=== PATIENT | male | born 1985 | race Caucasian/White ===

== ENCOUNTER 2016-09-07 02:25 | Inpatient (IN) | payer SELFPAY ==
[~2016-09-07] VITALS: Ht 180.3 cm; Wt 76.5 kg
[2016-09-07] VITALS (22 sets, daily range): BP systolic 91–152; BP diastolic 55–100; PULSE 68–116; RESP 12–23; TEMP 97.2–101; O2SAT 93–100
[2016-09-07] MEDS ORDERED: SODIUM CHLOR 0.9% 1000 ML INJ 1,000 ML IV SCH (02:37)
[2016-09-07] MEDS ORDERED: PROPOFOL 1000 MG/100 ML INJ 100 ML ONE (02:37)
[2016-09-07] MEDS ORDERED: SODIUM CHLOR 0.9% 1000 ML INJ 1,000 ML IV ONE ×2 (02:39→03:09)
[2016-09-07] MEDS ORDERED: SODIUM CHLORIDE 0.9% FLUSH 5 ML FLUSH IVF PRN ×2 (02:45)
[2016-09-07] MEDS ORDERED: NALOXONE HCL 2 MG/2 ML VIAL IV ONE (02:45)
--- NOTE | 2016-09-07 03:01 | RADRPT ---
EXAM DATE/TIME: 09/07/2016 02:48 [facility] COMPARISON: No previous studies available for comparison. INDICATIONS : Post intubation. MEDICAL HISTORY : None. SURGICAL HISTORY : None. ENCOUNTER: Initial ACUITY: 1 day PAIN SCORE: Non-responsive. LOCATION: Bilateral chest FINDINGS: Endotracheal tube is present in satisfactory position. A nasogastric tube is seen in the distal esoph maciej. Approximately 10 cm additional advancement would be optimal. Lungs are symmetrically aerated an d grossly clear. Cardiomediastinal contours are satisfactory. Thoracic skeleton is grossly intact. CONCLUSION: Nasogastric tube is in the distal esophagus. Otherwise satisfactory Phil Pacheco MD on September 07, 2016 at 2:59 Board Certified Radiologist. This report was verified electronically.
[2016-09-07 03:03] LABS: BACTERIA, URINE RARE /hpf; BLOOD, URINE TRACE (NEG); COMMENT (UR) CATH-CULTURE IND; CULTURE IF INDICATED CATH CULTURE IND; GLUCOSE,URINE 300 mg/dL (NEG); HYALINE CAST, URINE 1 /lpf (RARE); KETONE, URINE NEG (NEG); MUCUS URINE FEW /lpf (OCC); NITRITE,URINE NEG (NEG); URINE COLOR YELLOW (YELLW/STRAW)
[2016-09-07 03:04] LABS: AMPHETAMINE, URINE NEG (NEG); BARBITURATES, URINE NEG (NEG); COCAINE, URINE POS (NEG)
[2016-09-07 03:07] LABS: AUTOMATED NEUTROPHIL # 8.4 TH/MM3 (1.8-7.7); BASOPHIL % 0.4 % (0.0-2.0); EOSINOPHIL # 0.2 TH/MM3 (0-0.4); EOSINOPHIL % 1.9 % (0.0-4.0); HEMATOCRIT 41.1 % (39.0-51.0); LYMPH % 15.7 % (9.0-44.0); LYMPHOCYTE # 1.7 TH/MM3 (1.0-4.8); MEAN CELL VOLUME 94.8 FL (80.0-100.0); MEAN CORPUSCULAR HEMOGLOBIN 32.3 PG (27.0-34.0); MEAN CORPUSCULAR HGB CONC 34.1 % (32.0-36.0); MONO % 5.1 % (0.0-8.0); NEUT % 76.9 % (16.0-70.0); PLATELET COUNT 186 TH/MM3 (150-450); RED BLOOD COUNT 4.33 MIL/MM3 (4.50-5.90); RED CELL DISTRIBUTION WIDTH 12.6 % (11.6-17.2); WHITE BLOOD COUNT 10.9 TH/MM3 (4.0-11.0)
[2016-09-07 03:08] LABS: HEMO FLAGS AUTO DIFF
[2016-09-07 03:12] LABS: ALT (GPT) 45 U/L (12-78); ANION GAP 15 MEQ/L (5-15); AST (GOT) 47 U/L (15-37); BICARBONATE 23.5 MEQ/L (21.0-32.0); BLOOD UREA NITROGEN 15 MG/DL (7-18); CHLORIDE 102 MEQ/L (98-107); GLOMERULAR FILTRATION RATE 29 ML/MIN (>89); MAGNESIUM 2.5 MG/DL (1.5-2.5); POTASSIUM 3.8 MEQ/L (3.5-5.1); SODIUM (NA) 140 MEQ/L (136-145)
[2016-09-07 03:13] LABS: ACETAMINOPHEN LESS THAN 2.0 MCG/ML (10.0-30.0); ALKALINE PHOSPHATASE 89 U/L (45-117); BETA-HYDROXYBUTYRATE 0.16 MMOL/L (0.00-0.39); CREATINE KINASE 118 U/L (39-308); TOTAL BILIRUBIN ADULT 0.1 MG/DL (0.2-1.0)
[2016-09-07 03:33] LABS: BANDS 9 % (0-6); EOSINOPHILS 1 % (0-4); METAMYELOCYTES 1 % (0-1); MYELOCYTES 1 % (0-0); NEUTROPHIL # MANUAL DIFF 8.2 TH/MM3 (1.8-7.7); PLATELET ESTIMATE SMEAR NORMAL (NORMAL); PLATELET MORPHOLOGY NORMAL (NORMAL); POLYS (SEG NEUTROPHILS) 64 % (16-70); SCAN/DIFF FINAL DIFF MANUAL; WBC DIFF SAMPLE 100
--- NOTE | 2016-09-07 03:38 | PD ---
HPI Chief Complaint: Altered Mental Status Time Seen by Provider: 02:37 Travel History International Travel<30 days: No Contact w/Intl Traveler<30days: No Traveled to known affect area: No History of Present Illness HPI Patient is approximately 26 years old. EMS reports he was found unresponsive by roommate evidently vomiting in the toilet. Friend was concerned for apnea and started chest compressions without checking the pulse. EMS notes + HR on scene with RR of approximately 4/min. EMS reported HR 110's. 0.5L NS given. 0.8mg Narcan given with no change. BP 130s systolic. O2 sat upon arrival approx 94%. FSG was 390 on scene. EMS attempted intubation in route without success. 2mg Narcan given with no change. Upon arrival to ER pt was intubated shortly thereafter. Pt's friend reports they abuse drugs typically every weekend. Pt obtained a Xanax script a few days prior and reportedly took approx 20 1mg tablets. PFSH Past Medical History Medical History: Unable to Obtain Tetanus Vaccination: Unknown Past Surgical History Surgical History: Unable to Obtain Social History Tobacco Use: No (unknown) Substance Use: No (unknown) Allergies-Medications (Allergen,Severity, Reaction): Coded Allergies: Morphine (Verified Allergy, Unknown, 09/07/16) Reported Meds & Prescriptions Reported Meds & Active Scripts Active Reported Xanax (Alprazolam) 0.5 Mg Tab 0.5 Mg PO Q4H PRN Review of Systems ROS Limitations: Clinical Condition, Intoxication, Intubated Physical Exam Narrative GENERAL: Approximately 26-year-old male well-nourished well-developed SKIN: Warm and dry. HEAD: Atraumatic. Normocephalic. EYES: Pupils equal round and reactive. The gaze is conjugate. ENT: No nasal bleeding or discharge. Mucous membranes pink and moist. Secretions present in the hypopharynx. NECK: Trachea midline. No JVD. CARDIOVASCULAR: Regular rate and rhythm. No murmur appreciated. RESPIRATORY: No accessory muscle use. Clear to auscultation. Breath sounds equal bilaterally. GASTROINTESTINAL: Abdomen soft, non-tender, nondistended. Hepatic and splenic margins not palpable. MUSCULOSKELETAL: No obvious deformities. No clubbing. No cyanosis. No edema. NEUROLOGICAL: GCS is 3 (eyes 1, verbal 1, motor 1). Pupils equal round and reactive. PSYCHIATRIC: Unable to assess. Data Data Last Documented VS Vital Signs Date Time Temp Pulse Resp B/P Pulse Ox O2 Delivery O2 Flow Rate FiO2 09/07/16 03:17 100 12 138/83 99 Ventilator 60 09/07/16 02:52 98.0 Orders Propofol 1000 Mg/100 Ml Inj (Diprivan 10 (09/07/16 02:37) Electrocardiogram (09/07/16 02:37) Complete Blood Count With Diff (09/07/16 02:37) Drug Screen, Random Urine (09/07/16 02:37) Salicylates (Aspirin) (09/07/16 02:37) Urinalysis - C+S If Indicated (09/07/16 02:37) Arterial Blood Gas (Abg) (09/07/16 02:37) Chest, Single Ap (09/07/16 02:37) Ct Brain W/O Iv Contrast(Rout) (09/07/16 02:37) Blood Glucose (09/07/16 02:37) Ecg Monitoring (09/07/16 02:37) Iv Access Insert/Monitor (09/07/16 02:37) Oximetry (09/07/16 02:37) Oxygen Administration (09/07/16 02:37) Urinary Catheter Insert/Apply (09/07/16 02:37) Naloxone Inj (Narcan Inj) (09/07/16 02:45) Sodium Chloride 0.9% Flush (Ns Flush) (09/07/16 02:45) Sodium Chlor 0.9% 1000 Ml Inj (Ns 1000 M (09/07/16 02:37) Magnesium (Mg) (09/07/16 02:39) Beta Hydroxybutyrate (Acetone) (09/07/16 02:39) Lactic Acid (09/07/16 02:39) Blood Glucose (09/07/16 02:39) Blood Glucose (09/07/16 03:39) Blood Glucose (09/07/16 02:39) NPO (09/07/16 02:39) Sodium Chlor 0.9% 1000 Ml Inj (Ns 1000 M (09/07/16 02:39) Sodium Chlor 0.9% 1000 Ml Inj (Ns 1000 M (09/07/16 03:09) Sodium Chloride 0.9% Flush (Ns Flush) (09/07/16 02:45) Lipase (09/07/16 02:39) Tylenol (Acetaminophen) (09/07/16 02:45) Alcohol (Ethanol) (09/07/16 02:45) Creatine Kinase (Cpk) (09/07/16 02:45) Comprehensive Metabolic Panel (09/07/16 02:45) Troponin I (09/07/16 02:45) Urine Culture (09/07/16 02:40) Admit Order (Ed Use Only) (09/07/16 03:35) Labs Laboratory Tests Test 09/07/16 09/07/16 09/07/16 02:40 02:45 03:35 Urine Color YELLOW Urine Turbidity CLEAR Urine pH 6.0 Urine Specific [place] 1.013 Urine Protein 100 mg/dL Urine Glucose (UA) 300 mg/dL Urine Ketones NEG mg/dL Urine Occult Blood TRACE Urine Nitrite NEG Urine Bilirubin NEG Urine Urobilinogen LESS THAN 2.0 MG/DL Urine Leukocyte Esterase NEG Urine RBC 5 /hpf Urine WBC 11 /hpf Urine Bacteria RARE /hpf Urine Hyaline Casts 1 /lpf Urine Mucus FEW /lpf Microscopic Urinalysis Comment CATH-CULTURE IND Urine Opiates Screen NEG Urine Barbiturates Screen NEG Urine Amphetamines Screen NEG Urine Benzodiazepines Screen POS Urine Cocaine Screen POS Urine Cannabinoids Screen NEG White Blood Count 10.9 TH/MM3 Red Blood Count 4.33 MIL/MM3 Hemoglobin 14.0 GM/DL Hematocrit 41.1 % Mean Corpuscular Volume 94.8 FL Mean Corpuscular Hemoglobin 32.3 PG Mean Corpuscular Hemoglobin 34.1 % Concent Red Cell Distribution Width 12.6 % Platelet Count 186 TH/MM3 Mean Platelet Volume 9.2 FL Neutrophils (%) (Auto) 76.9 % Lymphocytes (%) (Auto) 15.7 % Monocytes (%) (Auto) 5.1 % Eosinophils (%) (Auto) 1.9 % Basophils (%) (Auto) 0.4 % Neutrophils # (Auto) 8.4 TH/MM3 Lymphocytes # (Auto) 1.7 TH/MM3 Monocytes # (Auto) 0.6 TH/MM3 Eosinophils # (Auto) 0.2 TH/MM3 Basophils # (Auto) 0.0 TH/MM3 CBC Comment AUTO DIFF Differential Total Cells 100 Counted Neutrophils % (Manual) 64 % Band Neutrophils % 9 % Lymphocytes % 17 % Monocytes % 7 % Eosinophils % 1 % Neutrophils # (Manual) 8.2 TH/MM3 Metamyelocytes 1 % Myelocytes 1 % Differential Comment FINAL DIFF MANUAL Platelet Estimate NORMAL Platelet Morphology Comment NORMAL Red Cell Morphology Comment NORMAL Sodium Level 140 MEQ/L Potassium Level 3.8 MEQ/L Chloride Level 102 MEQ/L Carbon Dioxide Level 23.5 MEQ/L Anion Gap 15 MEQ/L Blood Urea Nitrogen 15 MG/DL Creatinine 2.01 MG/DL Estimat Glomerular Filtration 29 ML/MIN Rate Random Glucose 356 MG/DL Lactic Acid Level 7.9 mmol/L Calcium Level 8.0 MG/DL Magnesium Level 2.5 MG/DL Total Bilirubin 0.1 MG/DL Aspartate Amino Transf 47 U/L (AST/SGOT) Alanine Aminotransferase 45 U/L (ALT/SGPT) Alkaline Phosphatase 89 U/L Total Creatine Kinase 118 U/L Troponin I 0.02 NG/ML Total Protein 6.4 GM/DL Albumin 3.4 GM/DL Lipase 111 U/L Salicylates Level 2.8 MG/DL Acetaminophen Level LESS THAN 2.0 MCG/ML Ethyl Alcohol Level LESS THAN 3 MG/DL B-Hydroxybutyrate 0.16 MMOL/L Blood Gas Puncture Site RT RADIAL Blood Gas Patient Temperature 98.6 Blood Gas HCO3 21 mmol/L Blood Gas Base Excess -5.8 mmol/L Blood Gas Oxygen Saturation 92 % Arterial Blood pH 7.22 Arterial Blood Partial 53 mmHg Pressure CO2 Arterial Blood Partial 97 mmHG Pressure O2 Arterial Blood Oxygen Content 16.4 Vol % Arterial Blood 2.5 % Carboxyhemoglobin Arterial Blood Methemoglobin 2.0 % Blood Gas Hemoglobin 12.5 G/DL Oxygen Delivery Device VENTILATOR Blood Gas Ventilator Setting AC12/550 5 PEEP Blood Gas Inspired Oxygen 60 % MDM Medical Decision Making Medical Screen Exam Complete: Yes Emergency Medical Condition: Yes Medical Record Reviewed: Yes Differential Diagnosis PSA, hypoxia, sepsis, multi-organ failure, Narrative Course CBC & BMP Diagram 09/07/16 02:45 LA 7.9 LFTs normal Troponin 0.02 Lipase 111 U tox + benzodiazepines + cocaine APAP < 2.0 EtOH < 3.0 Salicylates 2.[address] 09/07/16236 Signed Impressions: Service Date/Time: Wednesday, September 07, 2016 04:01 - CONCLUSION: Mild sinus disease. No acute intracranial findings. Phil Pacheco MD Chest X-Ray 09/07/16236 Signed Impressions: Service Date/Time: Wednesday, September 07, 2016 02:48 - CONCLUSION: Nasogastric tube is in the distal esophagus. Otherwise satisfactory Phil Pacheco MD Please refer to HPI. Pt will be admitted to backup administrator service. D/w Dr Mckeon. Critical Care Narrative Aggregate critical care time was 40 minutes. Time to perform other separately billable procedures was not included in the critical care time. My time did not include minutes spent treating any other patients simultaneously or on activities that did not directly contribute to the patient's treatment. The services I provided to this patient were to treat and/or prevent clinically significant deterioration that could result in: Cardiopulmonary arrest, hypoxic respiratory arrest I provided critical care services requiring my management, as noted below: Chart data review, documentation time, medication orders and management, vital sign assessments/reviewing monitor data, ordering and reviewing lab tests, ordering and interpreting/reviewing x-rays and diagnostic studies, care of the patient and discussion of the patient with the admitting physicians. Procedures Procedure Narrative After the risks and benefits were discussed the following procedure was performed: INTUBATION: The patient was put in optimal position for the procedure. Rapid sequence intubation was initiated by me using 20 milligrams of etomidate IV and 50 milligrams of rocuronium IV. The patient was intubated with a 8-0 cuffed endotracheal tube. Tube placement was confirmed by visualization of the tube and balloon passing through the cords, capnometry and subsequent chest x-ray. Breath sounds were equal and well aerated bilaterally postintubation. No breath sounds over stomach. Patient tolerated procedure well. Diagnosis Primary Impression: Hypoxia Additional Impressions: Benzodiazepine overdose Qualified Code: T42.4X4A - Benzodiazepine overdose, undetermined intent, initial encounter Cocaine abuse Respiratory arrest Admitting Information Admitting Physician Requests: it Dale Quevedo MD Sep 07, 2016 03:38
[2016-09-07] MEDS ORDERED: CEFEPIME INJ 2,000 MG in SODIUM CHLORIDE 0.9% INJ 100 ML IV ONE (04:00)
--- NOTE | 2016-09-07 04:11 | RADRPT ---
EXAM DATE/TIME: 09/07/2016 04:01 [facility] COMPARISON: No previous studies available for comparison. INDICATIONS : Found unresponsive RADIATION DOSE: 46.68 CTDIvol (mGy) MEDICAL HISTORY : Non-responsive. SURGICAL HISTORY : Non-responsive. ENCOUNTER: Initial ACUITY: 1 day PAIN SCALE: Non-responsive LOCATION: Bilateral cranial TECHNIQUE: Multiple contiguous axial images were obtained of the head. Using automated exposure control and adj ustment of the mA and/or kV according to patient size, radiation dose was kept as low as reasonably a chievable to obtain optimal diagnostic quality images. FINDINGS: CEREBRUM: The ventricles are normal for age. No evidence of midline shift, mass lesion, hemorrhage or acute in farction. No extra-axial fluid collections are seen. POSTERIOR FOSSA: The cerebellum and brainstem are intact. The 4th ventricle is midline. The cerebellopontine angle i s unremarkable. EXTRACRANIAL: A there is fluid and mild mucosal disease in the facial sinuses The visualized portion of the orbits is intact. SKULL: The calvaria is intact. No evidence of skull fracture. CONCLUSION: Mild sinus disease. No acute intracranial findings. Phil Pacheco MD on September 07, 2016 at 4:08 Board Certified Radiologist. This report was verified electronically.
[2016-09-07 04:15] LABS: BLOOD GAS BASE EXCESS -5.8 mmol/L (-2-2); BLOOD GAS CARBOXYHEMOGLOBIN 2.5 % (0-4); BLOOD GAS HCO3 21 mmol/L (22-26); BLOOD GAS O2 HGB SATURATION 92 % (90-100); BLOOD GAS OXYGEN CONTENT 16.4 Vol % (12.0-20.0); BLOOD GAS PCO2 53 mmHg (38-42); BLOOD GAS PO2 97 mmHG (61-120); BLOOD GAS TOTAL HGB 12.5 G/DL (12.0-16.0); TEMP CORR TO 98.6
[2016-09-07 04:16] LABS: CRITICAL VALUE YES; DRAW SITE RT RADIAL; FIO2 60 %; NUMBER OF ARTERIAL PUNCTURES 1; OXYGEN DEVICE VENTILATOR; STAT YES; ULNAR PULSE PRESENT; VENT SETTINGS AC12/550 5 PEEP
[2016-09-07] MEDS ORDERED: ALPR.5 PO (04:24)
[2016-09-07] MEDS ORDERED: RESP: ALBUTEROL 2.5 MG/IPRATROPIUM 0.5 MG NEB (PRN) INH (04:30)
[2016-09-07] MEDS ORDERED: POTASSIUM CHLOR 40 MEQ PREMIX 100 ML IV PRN ×2 (04:30)
[2016-09-07] MEDS ORDERED: POTASSIUM PHOSPHATE MONOBASIC 500 MG TAB PO PRN (04:30)
[2016-09-07] MEDS ORDERED: MAGNESIUM OXIDE 400 MG TAB PO PRN (04:30)
[2016-09-07] MEDS ORDERED: POTASSIUM PHOSPHATE MONOBASIC 500 MG TAB PO/TUBE PRN (04:30)
[2016-09-07] MEDS ORDERED: POTASSIUM PHOSPHATE INJ 30 MMOL in SODIUM CHLOR 0.9% 250 ML INJ 250 ML IV PRN (04:30)
[2016-09-07] MEDS ORDERED: SODIUM PHOSPHATE INJ 30 MMOL in SODIUM CHLOR 0.9% 250 ML INJ 240 ML IV PRN (04:30)
[2016-09-07] MEDS ORDERED: fentaNYL DRIP 250 ML IV SCH (04:30)
[2016-09-07] MEDS ORDERED: CHLORHEXIDINE GLUCONATE 2 % 1 PACK (2 CLOTHS) TOP PRN (04:30)
[2016-09-07] MEDS ORDERED: MAGNESIUM SULFATE INJ 4 GM in SODIUM CHLORIDE 0.9% INJ 92 ML IV PRN (04:30)
[2016-09-07] MEDS ORDERED: MAGNESIUM SULFATE INJ 2 GM in SODIUM CHLORIDE 0.9% INJ 96 ML IV PRN (04:30)
[2016-09-07] MEDS ORDERED: ONDANSETRON HCL 4 MG/2 ML VIAL IV PRN (04:30)
[2016-09-07] MEDS ORDERED: POTASSIUM CHLOR 20 MEQ PREMIX 100 ML IV PRN ×2 (04:30)
[2016-09-07] MEDS ORDERED: SODIUM CHLORIDE 0.9% FLUSH 5 ML FLUSH IV FLUSH PRN (04:30)
[2016-09-07] MEDS ORDERED: MISCELLANEOUS NURSING INFORMATION XX SCH (04:30)
[2016-09-07] MEDS ORDERED: POTASSIUM CL 40 MEQ/30 ML LIQ UDC PO/TUBE PRN ×2 (04:30)
[2016-09-07] MEDS ORDERED: DEXTROSE 50% IN WATER 50 ML VIAL(D50) IV PUSH PRN (04:30)
--- NOTE | 2016-09-07 04:34 | HHI.HP ---
HPI Service Critical Care Medicine Primary Care Physician No Primary Care Physician Admission Diagnosis PSA OD, Resp Failure Diagnosis: Chief Complaint: altered mental status Travel History International Travel<30 Days: No Contact w/Intl Traveler <30 Da: No Traveled to Known Affected Are: No History of Present Illness This is a young male in his mid 20s who presented by EMS for acute respiratory arrest. He was reportedly at a friend's house when he was found unresponsive in the bathroom. He was found with a Xanax bottle that was prescribed with 90 1mg Xanax tablets, and there were less than 20 tablets left. This prescription was recently filled within the last week. His family states he has never done anything like this before. When EMS found him, he had a pulse, but had agonal respirations. They brought him in to the ED bag mask ventilating him. He was emergently intubated in the ED. His UDS is positive for cocaine and benzodiazepines. He has a severely elevated lactate of 7, Cr 2. Critical care medicine is consulted to evaluate and manage his multisystem organ dysfunction in the setting of presumed benzodiazepine overdose. Review of Systems ROS Limitations: Clinical Condition, Intubated, Altered Mental Status, Unresponsive Past Family Social History Allergies: Coded Allergies: Morphine (Verified Allergy, Unknown, 09/07/16) Past Medical History Unable to be obtained secondary to patient's clinical condition. In discussions with his family, his only past medical history is depression. Past Surgical History Unknown secondary to patient's clinical condition Reported Medications Unknown secondary patient's clinical condition. Patient takes Xanax for depression per his family. Active Ordered Medications See MAR Family History Unable to be obtained secondary to the patient's clinical condition. Social History Unable to be obtained secondary to patient's clinical condition. Physical Exam Vital Signs Vital Signs Date Time Temp Pulse Resp B/P Pulse Ox O2 Delivery O2 Flow Rate FiO2 09/07/16 04:21 88 16 95/55 99 Ventilator 60 09/07/16 04:02 100 100 09/07/16 03:17 100 12 138/83 99 Ventilator 60 09/07/16 03:11 99 Ventilator 60 09/07/16 03:11 99 Ventilator 09/07/16 03:10 101 12 152/100 100 Ventilator 60 09/07/16 02:52 98.0 116 12 147/98 99 09/07/16 02:35 99 60 Physical Exam GENERAL: Young male, lying in bed, intubated, sedated. HEENT: Normocephalic. Atraumatic. Pupils pinpoint, equal, round, reactive. Mucous membranes are moist. NECK: Orotracheally intubated. Trachea is midline. There is no JVD. CHEST: Equal chest rise. Clear to auscultation. CARDIOVASCULAR: Tachycardic rate, regular rhythm. No appreciable murmurs. ABDOMEN: Soft, nontender, nondistended. No guarding. MUSCULOSKELETAL: No peripheral edema. Distal pulses 2+. NEUROLOGICAL: RASS -3. GCS 5T (E1,VT,M4). No corneals. No cough. Very weak gag. Does move all 4 extremities spontaneously, although does not withdraw to pain. Not purposeful. Does not follow commands. Laboratory Laboratory Tests Test 09/07/16 09/07/16 09/07/16 02:40 02:45 03:35 Urine Color YELLOW Urine Turbidity CLEAR Urine pH 6.0 Urine Specific [place] 1.013 Urine Protein 100 Urine Glucose (UA) 300 Urine Ketones NEG Urine Occult Blood TRACE Urine Nitrite NEG Urine Bilirubin NEG Urine Urobilinogen LESS THAN 2.0 Urine Leukocyte Esterase NEG Urine RBC 5 Urine WBC 11 Urine Bacteria RARE Urine Hyaline Casts 1 Urine Mucus FEW Microscopic Urinalysis Comment CATH-CULTURE IND Urine Opiates Screen NEG Urine Barbiturates Screen NEG Urine Amphetamines Screen NEG Urine Benzodiazepines Screen POS Urine Cocaine Screen POS Urine Cannabinoids Screen NEG White Blood Count 10.9 Red Blood Count 4.33 Hemoglobin 14.0 Hematocrit 41.1 Mean Corpuscular Volume 94.8 Mean Corpuscular Hemoglobin 32.3 Mean Corpuscular Hemoglobin 34.1 Concent Red Cell Distribution Width 12.6 Platelet Count 186 Mean Platelet Volume 9.2 Neutrophils (%) (Auto) 76.9 Lymphocytes (%) (Auto) 15.7 Monocytes (%) (Auto) 5.1 Eosinophils (%) (Auto) 1.9 Basophils (%) (Auto) 0.4 Neutrophils # (Auto) 8.4 Lymphocytes # (Auto) 1.7 Monocytes # (Auto) 0.6 Eosinophils # (Auto) 0.2 Basophils # (Auto) 0.0 CBC Comment AUTO DIFF Differential Total Cells 100 Counted Neutrophils % (Manual) 64 Band Neutrophils % 9 Lymphocytes % 17 Monocytes % 7 Eosinophils % 1 Neutrophils # (Manual) 8.2 Metamyelocytes 1 Myelocytes 1 Differential Comment FINAL DIFF MANUAL Platelet Estimate NORMAL Platelet Morphology Comment NORMAL Red Cell Morphology Comment NORMAL Sodium Level 140 Potassium Level 3.8 Chloride Level 102 Carbon Dioxide Level 23.5 Anion Gap 15 Blood Urea Nitrogen 15 Creatinine 2.01 Estimat Glomerular Filtration 29 Rate Random Glucose 356 Lactic Acid Level 7.9 Calcium Level 8.0 Magnesium Level 2.5 Total Bilirubin 0.1 Aspartate Amino Transf 47 (AST/SGOT) Alanine Aminotransferase 45 (ALT/SGPT) Alkaline Phosphatase 89 Total Creatine Kinase 118 Troponin I 0.02 Total Protein 6.4 Albumin 3.4 Lipase 111 Salicylates Level 2.8 Acetaminophen Level LESS THAN 2.0 Ethyl Alcohol Level LESS THAN 3 B-Hydroxybutyrate 0.16 Blood Gas Puncture Site RT RADIAL Blood Gas Patient Temperature 98.6 Blood Gas HCO3 21 Blood Gas Base Excess -5.8 Blood Gas Oxygen Saturation 92 Arterial Blood pH 7.22 Arterial Blood Partial 53 Pressure CO2 Arterial Blood Partial 97 Pressure O2 Arterial Blood Oxygen Content 16.4 Arterial Blood 2.5 Carboxyhemoglobin Arterial Blood Methemoglobin 2.0 Blood Gas Hemoglobin 12.5 Oxygen Delivery Device VENTILATOR Blood Gas Ventilator Setting AC12/550 5 PEEP Blood Gas Inspired Oxygen 60 Date/Time Procedure Status Source Growth 09/07/16 02:40 Urine Culture Received Urine Catheterized Urine Pending Result Diagram: 09/07/165 09/07/165 Assessment and Plan Assessment and Plan Assessment: This is a young male with history of depression who presents with likely Xanax overdose and subsequent respiratory arrest leading to multiorgan system dysfunction. Likely his severely elevated lactate and his renal dysfunction as well as hepatic dysfunction likely secondary to hypoperfusion and poor oxygen delivery. He is moving all extremities. We will admit him to the ICU and monitor him with supportive care. Problems: Toxic encephalopathy Acute hypoxic and hypercarbic respiratory failure Sinus tachycardia Lactic acidosis Acute kidney injury Shock liver Benzodiazepine overdose Cocaine abuse Plan: Every hour neuro checks Goal RASS 0 Propofol for goal RASS Avoid long-acting sedating meds Watch for benzodiazepine withdrawal Vent bundle Head of bed at 30 Wean FiO2 for goal SPO2 greater than 92% Does not meet SBT criteria today Low tidal volume ventilation targeting 6 cc/kg ideal body weight LR maintenance fluids at 100 cc an hour Trend lactates Daily CBC and BMP Torres for strict I's and O's. Every hour urine output Nothing by mouth Place OG tube to wall suction Lovenox and SCDs for DVT prophylaxis Protonix for GI prophylaxis Admit to the ICU This patient remains critically ill with one or more organ systems which are or may become a threat to life. I have spent in excess of 44 minutes discontinuously in the care and management of this patient. This time is exclusive of procedures, and includes, but is not limited to, evaluation of the patient, review of the medical record, discussions with family, consultants, nursing staff, or respiratory therapy, and documentation in the medical record. Code Status Full Code Discussed Condition With ER physician, bedside RN, mother and sister at bedside. Gibson Junior MD Sep 07, 2016 04:34
[2016-09-07] MEDS: LACTATED RINGER'S 1000 ML INJ 1,000 ML IV SCH ×4 (04:57→20:00)
[2016-09-07] MEDS: HEPARIN SODIUM - SQ 10,000 UNITS/ML VIAL SQ SCH ×3 (05:10→22:00)
[2016-09-07] MEDS ORDERED: MIDAZOLAM HCL 5 MG/ML VIAL (1 ML) ONE (05:29)
[2016-09-07] MEDS ORDERED: MIDAZOLAM HCL 5 MG/5 ML VIAL IV PUSH ONE (05:30)
[2016-09-07] MEDS: PROPOFOL 1000 MG/100 ML INJ 100 ML IV SCH ×2 (05:57→08:10)
[2016-09-07] MEDS: SODIUM CHLORIDE 0.9% FLUSH 5 ML FLUSH IV FLUSH SCH ×2 (08:12→20:16)
[2016-09-07] MEDS: RESP: ALBUTEROL 2.5 MG/IPRATROPIUM 0.5 MG NEB (SCH) INH ×3 (08:34→21:53)
[2016-09-07] MEDS: PANTOPRAZOLE SOD 40 MG DELAYED RELEASE TAB PO SCH (09:00)
[2016-09-07] MEDS: DOCUSATE SODIUM 50 MG/SENNA 8.6 MG TAB PO SCH ×2 (09:00→20:16)
[2016-09-07] MEDS: cefTRIAXone INJ 1,000 MG in SODIUM CHLORIDE 0.9% INJ 100 ML IV SCH (10:15)
--- NOTE | 2016-09-07 10:36 | EKG ---
Date Performed: 09/07/2016 Time Performed: 02:42:50 PTAGE: 89 years EKG: SINUS TACHYCARDIA MODERATE INTRAVENTRICULAR CONDUCTION DELAY ABNORMAL RHYTHM ECG NO PREVIOUS TRACING DOCTOR: Serjio Rockwell Interpretating Date/Time 09/07/2016 10:34:10
[2016-09-07] MEDS: ACETAMINOPHEN 325 MG TAB PO PRN ×2 (18:15→20:16)
[2016-09-08] VITALS (8 sets, daily range): BP systolic 115–129; BP diastolic 66–99; PULSE 78–114; RESP 18–33; TEMP 98.3–99.3; O2SAT 91–100
[2016-09-08] MEDS: LACTATED RINGER'S 1000 ML INJ 1,000 ML IV SCH ×3 (00:05→11:00)
[2016-09-08] MEDS: RESP: ALBUTEROL 2.5 MG/IPRATROPIUM 0.5 MG NEB (SCH) INH ×4 (03:57→21:39)
[2016-09-08] MEDS: CHLORHEXIDINE GLUCONATE 2 % 1 PACK (2 CLOTHS) TOP SCH (04:00)
[2016-09-08 04:16] LABS: HEMATOCRIT 36.9 % (39.0-51.0); MEAN CORPUSCULAR HEMOGLOBIN 31.8 PG (27.0-34.0); PLATELET COUNT 131 TH/MM3 (150-450); RED BLOOD COUNT 4.06 MIL/MM3 (4.50-5.90); RED CELL DISTRIBUTION WIDTH 12.9 % (11.6-17.2); REVIEW FLAG FINAL; WHITE BLOOD COUNT 9.9 TH/MM3 (4.0-11.0)
[2016-09-08 04:44] LABS: BICARBONATE 30.5 MEQ/L (21.0-32.0); POTASSIUM 3.7 MEQ/L (3.5-5.1)
[2016-09-08] MEDS: INSULIN NovoLIN REGULAR SUPPLEMENTAL SCALE SQ SCH ×3 (05:46→12:00)
[2016-09-08] MEDS: HEPARIN SODIUM - SQ 10,000 UNITS/ML VIAL SQ SCH ×3 (06:00→22:00)
[2016-09-08] MEDS: cefTRIAXone INJ 1,000 MG in SODIUM CHLORIDE 0.9% INJ 100 ML IV SCH (09:53)
[2016-09-08] MEDS: PANTOPRAZOLE SOD 40 MG DELAYED RELEASE TAB PO SCH (09:53)
[2016-09-08] MEDS: SODIUM CHLORIDE 0.9% FLUSH 5 ML FLUSH IV FLUSH SCH ×2 (09:53→20:12)
[2016-09-08] MEDS: DOCUSATE SODIUM 50 MG/SENNA 8.6 MG TAB PO SCH ×2 (09:53→20:12)
--- NOTE | 2016-09-08 15:57 | PD.CONS ---
Provisional Diagnosis Admission Date Sep 07, 2016 at 03:37 [place] I. Substance-induced mood disorder, cocaine use disorder, self reported anxiety and ADHD [place] II. Deferred [place] III. He denies [place] IV. Unemployed [place] V. 55 History of Present Illness Service Psychiatry Consult Requested By Primary Care Physician No Primary Care Physician HPI The patient is a 30-year-old man, domicile with his mother in [place], unemployed, single, with a self-reported psychiatric history of ADHD, anxiety, no previous psychiatric hospitalizations, he is in outpatient psychiatric care with Dr. Blandon in [place], he is on Adderall 30 mg and Xanax 1 mg 3 times a day , no significant medical history, who presented by EMS for acute respiratory arrest. As per Er note: "He was reportedly at a friend's house when he was found unresponsive in the bathroom. He was found with a Xanax bottle that was prescribed with 90 1mg Xanax tablets, and there were less than 20 tablets left. This prescription was recently filled within the last week. His family states he has never done anything like this before". Patient was seen for psychiatric evaluation today, he was found laying down in his bed with his girlfriend. He agreed to have her present during the evaluation. Patient patient states that he feels much better today, he says that he was taking his psychotropics as prescribed, sometimes will take a little more Xanax "due to acute anxiety or been unemployed", but he says that this time he mixed the Xanax with cocaine. Patient is states that he did not try to overdose with intention to , but he admits he made a mistake using cocaine. Patient says that he usually does not use any illicit drug, but he was with some friends and he tried cocaine. At this moment the patient denies depressive symptoms, he reports good mood, he denies anhedonia, hopelessness, helplessness, he denies suicidal or homicidal ideation. Patient is future oriented, he says that he is is starting a new job next Tuesday, he also says that he has plans of getting with girlfriend, his girlfriend agree, he doesn't have any intention to or overdose. Patient denies psychosis, jolie, visual and auditory hallucinations, paranoia or delusions.. Patient is fully oriented 3. His girlfriend at bedside, is states that patient just made a mistake, she does not have any safety concern. She says that he goes to or his psychiatric appointment with Dr. Blandon. Review of Systems Constitutional: DENIES: Diaphoretic episodes, Fatigue, Fever, Weight gain, Weight loss, Chills, Dizziness, Change in appetite, Night Sweats Endocrine: DENIES: Heat/cold intolerance, Polydipsia, Polyuria, Polyphagia Eyes: DENIES: Blurred vision, Diplopia, Eye inflammation, Eye pain, Vision loss , Photosensitivity, Double Vision Ears, nose, mouth, throat: DENIES: Tinnitus, Hearing loss, Vertigo, Nasal discharge, Oral lesions, Throat pain, Hoarseness, Ear Pain, Running Nose, Epistaxis, Sinus Pain, Toothache, Odynophagia Respiratory: DENIES: Apneas, Cough, Snoring, Wheezing, Hemoptysis, Sputum production, Shortness of breath Cardiovascular: DENIES: Chest pain, Palpitations, Syncope, Dyspnea on Exertion , PND, Lower Extremity Edema, Orthopnea, Claudication Gastrointestinal: DENIES: Abdominal pain, Black stools, Bloody stools, Constipation, Diarrhea, Nausea, Vomiting, Difficulty Swallowing, Anorexia Genitourinary: DENIES: Sexual dysfunction, Urinary frequency, Urinary incontinence, Urgency, Hematuria, Dysuria, Nocturia, Penile Discharge, Testicular Pain, Testicular Swelling Integumentary: DENIES: Abnormal pigmentation, Nail changes, Pruritus, Rash Immunologic/allergic: DENIES: Eczema, Urticaria Psychiatric: DENIES: Anxiety, Confusion, Mood changes, Depression, Hallucinations, Agitation, Suicidal Ideation, Homicidal Ideation, Delusions Past Family Social History Coded Allergies: Morphine (Verified Allergy, Unknown, 09/07/16) *MDRO Multi-Drug Resistant Organism (Verified Adverse Reaction, Unknown, ) MRSA PCR Screen POSITIVE - 09/07/2016 Reported Medications Alprazolam (Xanax)0.5 Mg Tab0.5 Mg PO Q4H PRN (ANXIETY) Ref 0 09/07/16 Current Medications Medications (Trade) Dose Ordered Sig/Griffin Route Start Time Stop Time Status Last Admin Fentanyl Citrate 250 ml @ 0 mls/hr TITRATE IV 09/07/16 04:30 (Diprivan 1000 Mg/100ml Inj) 100 ml @ 0 mls/hr TITRATE IV 09/07/16 04:30 09/07/16 08:10 Magnesium Oxide 800 mg 800 mg UNSCH PRN PO 09/07/16 04:30 Magnesium Sulfate 4 gm/Sodium Chloride 100 ml @ 50 mls/hr UNSCH PRN IV 09/07/16 04:30 Magnesium Sulfate 2 gm/Sodium Chloride 100 ml @ 50 mls/hr UNSCH PRN IV 09/07/16 04:30 Potassium Chloride 100 ml @ 50 mls/hr Q2H PRN IV 09/07/16 04:30 Potassium Chloride 100 ml @ 50 mls/hr Q2H PRN IV 09/07/16 04:30 Potassium Chloride 100 ml @ 50 mls/hr Q2H PRN IV 09/07/16 04:30 (KCl 40 Meq Premix Inj) 100 ml @ 25 mls/hr UNSCH PRN IV 09/07/16 04:30 (KCl 40 Meq/30 ml Liq) 40 meq UNSCH PRN PO/TUBE 09/07/16 04:30 (KCl 40 Meq/30 ml Liq) 40 meq UNSCH PRN PO/TUBE 09/07/16 04:30 (K-Phos) 2,000 mg Q4H PRN PO 09/07/16 04:30 Potassium Phosphate 2000 mg 2,000 mg UNSCH PRN PO/TUBE 09/07/16 04:30 Potassium Phosphate 30 mmol/ Sodium Chloride 260 ml @ 42 mls/hr UNSCH PRN IV 09/07/16 04:30 (Sodium Phosphate Inj/NS 250 ml Inj) 250 ml @ 42 mls/hr UNSCH PRN IV 09/07/16 04:30 (D50w (Vial) Inj) 25 ml UNSCH PRN IV PUSH 09/07/16 04:30 (NovoLIN R SUPPLEMENTAL SCALE) 1 Q6HR SQ 09/07/16 06:00 (NS Flush) 2 ml UNSCH PRN IV FLUSH 09/07/16 04:30 (NS Flush) 2 ml BID IV FLUSH 09/07/16 09:00 09/08/16 09:53 (Protonix) 40 mg DAILY PO 09/07/16 09:00 09/08/16 09:53 (Zofran Inj) 4 mg Q6H PRN IV 09/07/16 04:30 (Lisa-Colace) 2 tab BID PO 09/07/16 09:00 09/08/16 09:53 (Heparin Inj) 5,000 units Q8H SQ 09/07/16 06:00 09/08/16 06:00 Miscellaneous Information 1 Q361D XX 09/07/16 04:30 09/07/16 04:30 (Chlorhexidine 2% Cloth) 3 pack Taper DAILY@04 TOP 09/08/16 04:00 09/04/17 03:59 09/08/16 04:00 Chlorhexidine Gluconate 3 pack 3 pack UNSCH PRN TOP 09/07/16 04:30 Lactated Ringer's 1,000 ml @ 200 mls/hr Q5H IV 09/07/16 05:00 09/08/16 05:45 (Rocephin Inj/NS Inj) 100 ml @ 200 mls/hr Q24H IV 09/07/16 10:15 09/10/16 21:00 09/08/16 09:53 (Tylenol) 650 mg Q6H PRN PO 09/07/16 17:30 09/07/16 18:15 Family History He denies Social History Patient was born in [facility], he lives with his mother in [place], he is unemployed, single, he has a girlfriend, his highest level of education is high school Physical Exam Vital Signs Vital Signs Date Time Temp Pulse Resp B/P Pulse Ox O2 Delivery O2 Flow Rate FiO2 09/08/16 08:00 93 Nasal Cannula 2.00 09/08/16 04:00 98 09/08/16 04:00 99.3 33 09/07/16 08:44 70 I/O 09/07/16 09/07/16 09/08/16 08:00 16:00 00:00 Intake Total 3000 ml 1980 ml 300 ml Output Total 600 ml 1600 ml 1100 ml Balance 2400 ml 380 ml -800 ml Mental Status Examination Appearance athletic man, age appearing, good hygiene, multiple visible tattoos, calm and cooperative Speech: Unremarkable Orientation: x3 Memory: Unremarkable Thought Process: Logical Thought Content: Unremarkable Hallucination Type: None Suicidal Ideation: No Homicidal Ideation: No Previous Homicide Attempts: No Judgement: WNL Affect: Good Mood: Appropriate Motor Activity: Normal gait Assessment & Plan Problem List: (1) Substance induced mood disorder Assessment & Plan: At the moment of the psychiatric evaluation the patient does not present any evidence of objective or subjective depressive symptoms, anxiety, jolie or psychosis. Patient denies suicidal and homicidal ideation. He denies visual and auditory hallucinations. No internal preoccupation, delusions, paranoia, agitation, aggressive behavior, mood or behavioral dysregulation were observed or reported. Recent overdose with benzodiazepines and cocaine seems to be more secondary to poor judgment related with drug intoxicated and continues drug use than to a primary psychiatric condition. Patient does not benefit of inpatient psychiatric admission at this moment. He will benefit more of a rehabilitation program for drugs. He can continue his psychiatric care as an outpatient with Dr. Omalley. Continue current psychotropics. Extensive psychoeducation, motivation and support provided. ICD Code: F19.94 Assessment & Plan Estimated LOS: Ravin Davenport MD Sep 08, 2016 15:57
[2016-09-08] MEDS: ACETAMINOPHEN 325 MG TAB PO PRN (17:29)
[2016-09-09] VITALS (7 sets, daily range): BP systolic 65–128; BP diastolic 64–76; PULSE 95–111; RESP 18–20; TEMP 97.2–99.8; O2SAT 92–98
[2016-09-09] MEDS: CHLORHEXIDINE GLUCONATE 2 % 1 PACK (2 CLOTHS) TOP SCH (00:04)
[2016-09-09] MEDS: LACTATED RINGER'S 1000 ML INJ 1,000 ML IV SCH ×3 (02:00→22:00)
[2016-09-09] MEDS: HEPARIN SODIUM - SQ 10,000 UNITS/ML VIAL SQ SCH ×3 (04:04→21:35)
[2016-09-09] MEDS: RESP: ALBUTEROL 2.5 MG/IPRATROPIUM 0.5 MG NEB (SCH) INH ×4 (04:07→21:01)
[2016-09-09] MEDS: INSULIN NovoLIN REGULAR SUPPLEMENTAL SCALE SQ SCH ×4 (06:00→18:00)
[2016-09-09] MEDS: SODIUM CHLORIDE 0.9% FLUSH 5 ML FLUSH IV FLUSH SCH ×2 (09:00→21:35)
[2016-09-09] MEDS: DOCUSATE SODIUM 50 MG/SENNA 8.6 MG TAB PO SCH ×2 (09:16→21:00)
[2016-09-09] MEDS: PANTOPRAZOLE SOD 40 MG DELAYED RELEASE TAB PO SCH (09:16)
[2016-09-09] MEDS: cefTRIAXone INJ 1,000 MG in SODIUM CHLORIDE 0.9% INJ 100 ML IV SCH (09:17)
[2016-09-09 12:46] LABS: HEMATOCRIT 38.4 % (39.0-51.0); MEAN CELL VOLUME 91.9 FL (80.0-100.0); MEAN CORPUSCULAR HEMOGLOBIN 31.7 PG (27.0-34.0); MEAN CORPUSCULAR HGB CONC 34.5 % (32.0-36.0); PLATELET COUNT 190 TH/MM3 (150-450); RED BLOOD COUNT 4.18 MIL/MM3 (4.50-5.90); RED CELL DISTRIBUTION WIDTH 12.8 % (11.6-17.2); REVIEW FLAG FINAL; WHITE BLOOD COUNT 10.2 TH/MM3 (4.0-11.0)
[2016-09-09 13:11] LABS: BICARBONATE 31.7 MEQ/L (21.0-32.0); POTASSIUM 3.6 MEQ/L (3.5-5.1)
[2016-09-09] MEDS: ACETAMINOPHEN 325 MG TAB PO PRN (16:40)
[2016-09-10] VITALS (8 sets, daily range): BP systolic 121–136; BP diastolic 73–83; PULSE 82–99; RESP 18–20; TEMP 97–98.6; O2SAT 66–97
[2016-09-10] MEDS: LACTATED RINGER'S 1000 ML INJ 1,000 ML IV SCH (03:00)
[2016-09-10] MEDS: CHLORHEXIDINE GLUCONATE 2 % 1 PACK (2 CLOTHS) TOP SCH (04:00)
[2016-09-10] MEDS: RESP: ALBUTEROL 2.5 MG/IPRATROPIUM 0.5 MG NEB (SCH) INH ×3 (05:08→15:55)
[2016-09-10] MEDS: INSULIN NovoLIN REGULAR SUPPLEMENTAL SCALE SQ SCH ×4 (06:00→18:00)
[2016-09-10] MEDS: HEPARIN SODIUM - SQ 10,000 UNITS/ML VIAL SQ SCH ×2 (06:00→14:00)
[2016-09-10 06:09] LABS: HEMATOCRIT 36.7 % (39.0-51.0); MEAN CELL VOLUME 90.8 FL (80.0-100.0); MEAN CORPUSCULAR HGB CONC 35.2 % (32.0-36.0); PLATELET COUNT 177 TH/MM3 (150-450); RED BLOOD COUNT 4.04 MIL/MM3 (4.50-5.90); RED CELL DISTRIBUTION WIDTH 12.7 % (11.6-17.2); REVIEW FLAG FINAL; WHITE BLOOD COUNT 8.9 TH/MM3 (4.0-11.0)
[2016-09-10 06:33] LABS: BICARBONATE 28.2 MEQ/L (21.0-32.0); POTASSIUM 3.4 MEQ/L (3.5-5.1)
[2016-09-10] MEDS: SODIUM CHLORIDE 0.9% FLUSH 5 ML FLUSH IV FLUSH SCH ×2 (09:00→20:14)
[2016-09-10] MEDS: PANTOPRAZOLE SOD 40 MG DELAYED RELEASE TAB PO SCH (09:00)
[2016-09-10] MEDS: DOCUSATE SODIUM 50 MG/SENNA 8.6 MG TAB PO SCH ×2 (09:00→20:13)
[2016-09-10] MEDS: cefTRIAXone INJ 1,000 MG in SODIUM CHLORIDE 0.9% INJ 100 ML IV SCH (09:03)
--- NOTE | 2016-09-10 15:10 | HHI.PR ---
Subjective Remarks Patient transferred to our service from the umbrella tipper machine care service on 09/10/16 Follow up on metabolic encephalopathy, benzo overdose, acute kidney injury Patient post intubation and extubation, he is doing better now, kidney function improved, psychiatry did not think he needs inpatient admit for psychiatry, earlier today patient had some nosebleed, however he was on heparin for DVT prophylaxis we stopped that, he is doing better now, no fever or chills, he seems to be stable for discharge Objective Vitals Vital Signs Date Time Temp Pulse Resp B/P Pulse Ox O2 Delivery O2 Flow Rate FiO2 09/10/16 12:36 97.6 99 20 121/73 97 09/10/16 09:15 94 Nasal Cannula 21 09/10/16 08:19 98.6 88 20 135/83 95 09/10/16 05:08 96 09/10/16 04:00 97.0 82 18 124/73 97 09/10/16 00:00 97.8 87 18 124/73 96 09/09/16 20:00 97.2 99 18 126/75 96 09/09/16 18:42 98.5 95 20 128/76 96 I/O 09/09/16 09/09/16 09/09/16 09/10/16 09/10/16 09/10/16 07:00 15:00 23:00 07:00 15:00 23:00 Intake Total 960 ml 360 ml Output Total 800 ml Balance 960 ml -440 ml Intake Oral 960 ml 360 ml Output Urine Total 800 ml # Voids 4 # Bowel Movements 0 Result Diagram: 09/10/16 0523 09/10/16 05 Objective Remarks GENERAL: This is a well-nourished, well-developed patient, in no apparent distress. SKIN: No rashes, warm and dry HEAD: Atraumatic. Normocephalic. EYES: Pupils equal round and reactive. Extraocular motions intact. No scleral icterus. ENT: Nose without bleeding, or drainage, Airway patent. NECK: Trachea midline. Supple CARDIOVASCULAR: Regular rate and rhythm without murmurs, gallops, or rubs. RESPIRATORY: Fair air entry bilaterally. No wheezes, rales, or rhonchi. GASTROINTESTINAL: Abdomen soft, non-tender, nondistended. Positive bowel sounds MUSCULOSKELETAL: Extremities without clubbing, cyanosis, or edema. Pedal pulses appreciated NEUROLOGICAL: Awake and alert. Moves all extremity. Normal speech.no focal neurological deficit A/P Assessment and Plan Patient transferred to our service from the umbrella tipper machine care service on 09/10/16 Follow up on metabolic encephalopathy, benzo overdose, acute kidney injury Patient post intubation and extubation, he is doing better now, kidney function improved, psychiatry did not think he needs inpatient admit for psychiatry, earlier today patient had some nosebleed, however he was on heparin for DVT prophylaxis we stopped that, he is doing better now, no fever or chills, he seems to be stable for discharge A/P: Toxic encephalopathy Acute hypoxic and hypercapnic respiratory failure Sinus tachycardia Lactic acidosis Acute kidney injury Benzodiazepine overdose Cocaine abuse Plan: Patient post intubation and extubation, neuro check and close monitoring for benzo withdrawal, Watch for benzodiazepine withdrawal Status post Place OG tube to wall suction Status post Lovenox and SCDs for DVT prophylaxis Protonix for GI prophylaxis Advance diet, patient mobilized well, cleared by psychiatry, will discharge home today Lonnie Delacruz MD Sep 10, 2016 15:10
--- NOTE | 2016-09-10 15:11 | HHI.DS ---
Discharge Summary Admission Date Sep 07, 2016 at 03:37 Discharge Date: Sep 10, 2016 Admitting Diagnosis PSA OD, Resp Failure (1) Respiratory arrest ICD Code: R09.2 (2) Cocaine abuse ICD Code: F14.10 (3) Hypoxia ICD Code: R09.02 (4) Benzodiazepine overdose ICD Code: T42.4X1A (5) Substance induced mood disorder ICD Code: F19.94 Procedures Intubation and extubation Brief History - From Admission This is a young male in his mid 20s who presented by EMS for acute respiratory arrest. He was reportedly at a friend's house when he was found unresponsive in the bathroom. He was found with a Xanax bottle that was prescribed with 90 1mg Xanax tablets, and there were less than 20 tablets left. This prescription was recently filled within the last week. His family states he has never done anything like this before. When EMS found him, he had a pulse, but had agonal respirations. They brought him in to the ED bag mask ventilating him. He was emergently intubated in the ED. His UDS is positive for cocaine and benzodiazepines. He has a severely elevated lactate of 7, Cr 2. Critical care medicine is consulted to evaluate and manage his multisystem organ dysfunction in the setting of presumed benzodiazepine overdose. CBC/BMP: 09/10/16 0523 09/10/16 0523 Significant Findings Laboratory Tests Test 09/08/16 09/09/16 09/10/16 03:43 12:22 05:23 Red Blood Count 4.06 MIL/MM3 4.18 MIL/MM3 4.04 MIL/MM3 (4.50-5.90) (4.50-5.90) (4.50-5.90) Hemoglobin 12.9 GM/DL 12.9 GM/DL (13.0-17.0) (13.0-17.0) Hematocrit 36.9 % 38.4 % 36.7 % (39.0-51.0) (39.0-51.0) (39.0-51.0) Platelet Count 131 TH/MM3 (150-450) Estimat Glomerular Filtration 52 ML/MIN (>89) 76 ML/MIN (>89) 87 ML/MIN (>89) Rate Random Glucose 136 MG/DL 133 MG/DL (74-106) (74-106) Calcium Level 8.0 MG/DL (8.5-10.1) Potassium Level 3.4 MEQ/L (3.5-5.1) PE at Discharge GENERAL: This is a well-nourished, well-developed patient, in no apparent distress. SKIN: No rashes, warm and dry HEAD: Atraumatic. Normocephalic. EYES: Pupils equal round and reactive. Extraocular motions intact. No scleral icterus. ENT: Nose without bleeding, or drainage, Airway patent. NECK: Trachea midline. Supple CARDIOVASCULAR: Regular rate and rhythm without murmurs, gallops, or rubs. RESPIRATORY: Fair air entry bilaterally. No wheezes, rales, or rhonchi. GASTROINTESTINAL: Abdomen soft, non-tender, nondistended. Positive bowel sounds MUSCULOSKELETAL: Extremities without clubbing, cyanosis, or edema. Pedal pulses appreciated NEUROLOGICAL: Awake and alert. Moves all extremity. Normal speech.no focal neurological deficit Hospital Course Patient transferred to our service from the customer care manager care service on 09/10/16 Follow up on metabolic encephalopathy, benzo overdose, acute kidney injury Patient post intubation and extubation, he is doing better now, kidney function improved, psychiatry did not think he needs inpatient admit for psychiatry, earlier today patient had some nosebleed, however he was on heparin for DVT prophylaxis we stopped that, he is doing better now, no fever or chills, he seems to be stable for discharge A/P: Toxic encephalopathy Acute hypoxic and hypercapnic respiratory failure Sinus tachycardia Lactic acidosis Acute kidney injury Benzodiazepine overdose Cocaine abuse Plan: Patient post intubation and extubation, neuro check and close monitoring for benzo withdrawal, Watch for benzodiazepine withdrawal Status post Place OG tube to wall suction Status post Lovenox and SCDs for DVT prophylaxis Protonix for GI prophylaxis Advance diet, patient mobilized well, cleared by psychiatry, will discharge home today, I extensively discussed with the patient and advised and counseled about illicit drug abstinence, patient will follow and pursue drug rehabilitation Pt Condition on Discharge: Fair Discharge Disposition: Discharge Home Discharge Time: <= 30 minutes Discharge Instructions DIET: Follow Instructions for: As Tolerated, No Restrictions Activities you can perform: Weight Bearing as Ruth Other Activity Instructions: avoid alchol , cocaine Lonnie Delacruz MD Sep 10, 2016 15:11
--- NOTE | 2016-09-10 18:46 | RADRPT ---
EXAM DATE/TIME: 09/10/2016 17:49 [facility] COMPARISON: CHEST SINGLE AP, September 07, 2016, 2:48. INDICATIONS : Chest pain, congestion for 3 days MEDICAL HISTORY : None. SURGICAL HISTORY : None. ENCOUNTER: Initial ACUITY: 3 days PAIN SCORE: 8/10 LOCATION: Bilateral chest FINDINGS: There is mild left-sided perihilar airspace disease most characteristic of a bronchopneumonia. Right lung clear. No effusion. No pneumothorax. CONCLUSION: 1. Ill-defined airspace disease in the left perihilar and basilar region most characteristic of eithe r pneumonia or aspiration. No effusion. Renaldo Durham MD on September 10, 2016 at 18:44 Board Certified Radiologist. This report was verified electronically.
[2016-09-11] VITALS: BP 129/70; PULSE 90; RESP 18; TEMP 97.3; O2SAT 98
[2016-09-11] MEDS: RESP: ALBUTEROL 2.5 MG/IPRATROPIUM 0.5 MG NEB (SCH) INH (03:46)
[2016-09-11 04:00] VITALS: BP 130/72; PULSE 89; RESP 18; TEMP 97.6; O2SAT 96
[2016-09-11] MEDS: CHLORHEXIDINE GLUCONATE 2 % 1 PACK (2 CLOTHS) TOP SCH (04:00)
[2016-09-11] MEDS: INSULIN NovoLIN REGULAR SUPPLEMENTAL SCALE SQ SCH ×5 (06:00→23:45)
[2016-09-11 08:00] VITALS: BP 118/73; PULSE 73; RESP 17; TEMP 98; O2SAT 100
[2016-09-11] MEDS: LACTATED RINGER'S 1000 ML INJ 1,000 ML IV SCH ×4 (09:00→23:26)
[2016-09-11] MEDS: DOCUSATE SODIUM 50 MG/SENNA 8.6 MG TAB PO SCH ×2 (09:00→22:00)
[2016-09-11] MEDS: SODIUM CHLORIDE 0.9% FLUSH 5 ML FLUSH IV FLUSH SCH ×2 (09:00→22:00)
[2016-09-11] MEDS: PANTOPRAZOLE SOD 40 MG DELAYED RELEASE TAB PO SCH (09:14)
[2016-09-11 09:26] LABS: HEMATOCRIT 38.3 % (39.0-51.0); MEAN CELL VOLUME 91.4 FL (80.0-100.0); MEAN CORPUSCULAR HEMOGLOBIN 31.7 PG (27.0-34.0); MEAN CORPUSCULAR HGB CONC 34.6 % (32.0-36.0); PLATELET COUNT 209 TH/MM3 (150-450); RED BLOOD COUNT 4.19 MIL/MM3 (4.50-5.90); RED CELL DISTRIBUTION WIDTH 12.4 % (11.6-17.2); REVIEW FLAG FINAL; WHITE BLOOD COUNT 6.8 TH/MM3 (4.0-11.0)
[2016-09-11] MEDS ORDERED: traMADol HCL 50 MG TAB PO PRN (09:30)
[2016-09-11 09:36] LABS: BICARBONATE 32.4 MEQ/L (21.0-32.0); POTASSIUM 3.8 MEQ/L (3.5-5.1)
[2016-09-11] MEDS ORDERED: Vancomycin Consult Pharmacy 1 EA OTHER SCH (10:00)
--- NOTE | 2016-09-11 10:14 | HHI.PR ---
Subjective Remarks Patient complaint of chest pain and hemoptysis yesterday before he got discharged, so we ordered chest x-ray and he came positive for pneumonia Patient complaining of significant chest pain with reading in a pleuritic-like type, and he is having cough with hemoptysis, no fever Objective Vitals Vital Signs Date Time Temp Pulse Resp B/P Pulse Ox O2 Delivery O2 Flow Rate FiO2 09/11/16 08:00 98.0 73 17 118/73 100 09/11/16 04:00 97.6 89 18 130/72 96 09/11/16 00:00 97.3 90 18 129/70 98 09/10/16 20:00 97.4 96 18 136/73 96 09/10/16 17:05 98.3 93 20 134/82 66 09/10/16 12:36 97.6 99 20 121/73 97 I/O 09/10/16 09/10/16 09/10/16 09/11/16 09/11/16 09/11/16 07:00 15:00 23:00 07:00 15:00 23:00 Intake Total 360 ml 1810 ml 360 ml Output Total 800 ml Balance -440 ml 1810 ml 360 ml Intake Oral 360 ml 1810 ml 360 ml Output Urine Total 800 ml # Voids 11 3 # Bowel Movements 1 Result Diagram: 09/11/16 0840 09/11/16 0840 Objective Remarks GENERAL: This is a well-nourished, well-developed patient, in no apparent distress. SKIN: No rashes, warm and dry HEAD: Atraumatic. Normocephalic. EYES: Pupils equal round and reactive. Extraocular motions intact. No scleral icterus. ENT: Nose without bleeding, or drainage, Airway patent. NECK: Trachea midline. Supple CARDIOVASCULAR: Regular rate and rhythm without murmurs, gallops, or rubs. RESPIRATORY: Fair air entry with bibasilar crackles GASTROINTESTINAL: Abdomen soft, non-tender, nondistended. Positive bowel sounds MUSCULOSKELETAL: Extremities without clubbing, cyanosis, or edema. Pedal pulses appreciated NEUROLOGICAL: Awake and alert. Moves all extremity. Normal speech.no focal neurological deficit Procedures Intubation and extubation A/P Problem List: (1) Respiratory arrest ICD Code: R09.2 Status: Acute (2) Cocaine abuse ICD Code: F14.10 Status: Acute (3) Hypoxia ICD Code: R09.02 Status: Acute (4) Benzodiazepine overdose ICD Code: T42.4X1A Status: Acute (5) Substance induced mood disorder ICD Code: F19.94 Status: Acute Assessment and Plan Patient transferred to our service from the imaging assistant care service on 09/10/16 Follow up on metabolic encephalopathy, benzo overdose, acute kidney injury Patient post intubation and extubation, he is doing better now, kidney function improved, psychiatry did not think he needs inpatient admit for psychiatry, earlier today patient had some nosebleed, however he was on heparin for DVT prophylaxis we stopped that, he is doing better now, no fever or chills, he seems to be stable for discharge A/P: Acute pleuritic chest anal with hemoptysis>> Pneumonia possibly aspiration versus VAP Chest x-ray reviewed Considering his drug abuse and history of recent intubation will start Zosyn and Cipro and vancomycin Check HIV status Continue DuoNeb CT chest without contrast considering his recent BELINDA Sent for sputum culture, urine antigen for Legionella Taper down antibiotic depending on culture CBC with differential in a.m. Blood culture showing no growth Acute hypoxic and hypercapnic respiratory failure>> status post intubation and extubation, improved Toxic encephalopathy>> resolved Sinus tachycardia>> resolved Lactic acidosis>> resolved Acute kidney injury>> resolved Benzodiazepine overdose>> stable now Cocaine abuse Patient post intubation and extubation, neuro check and close monitoring for benzo withdrawal, Watch for benzodiazepine withdrawal Status post Place OG tube to wall suction Status post Lovenox and SCDs for DVT prophylaxis Protonix for GI prophylaxis Advance diet, patient mobilized well, cleared by psychiatry Discharge Planning Discharge has been on hold due to ongoing pleuritic chest pain with hemoptysis Problem Qualifiers (1) Benzodiazepine overdose: Qualified Code: T42.4X4A - Benzodiazepine overdose, undetermined intent, initial encounter Lonnie Delacruz MD Sep 11, 2016 10:14
[2016-09-11 12:00] VITALS: BP 129/76; PULSE 88; RESP 20; TEMP 97.6; O2SAT 95
[2016-09-11] MEDS: PIPERACIL-TAZO 4.5 GM PREMIX 100 ML IV SCH ×3 (12:29→22:00)
[2016-09-11] MEDS: VANCOMYCIN INJ 1,000 MG in SODIUM CHLOR 0.9% 250 ML INJ 250 ML IV SCH ×2 (13:06→18:35)
--- NOTE | 2016-09-11 14:05 | RADRPT ---
EXAM DATE/TIME: 09/11/2016 11:21 [facility] COMPARISON: No previous studies available for comparison. INDICATIONS : Short of breath, penumonia. RADIATION DOSE: 9.18 CTDIvol (mGy) MEDICAL HISTORY : Gastroesophageal reflux disease. SURGICAL HISTORY : None. ENCOUNTER: Initial ACUITY: 1 day PAIN SCALE: 5/10 LOCATION: chest TECHNIQUE: Volumetric scanning of the chest was performed. Using automated exposure control and adjustment of t he mA and/or kV according to patient size, radiation dose was kept as low as reasonably achievable to obtain optimal diagnostic quality images. FINDINGS: LUNGS: There is bilateral lower lobe air space consolidation, left much greater than right. No pneumothorax is present. There is no pulmonary nodule seen. PLEURAE: There is no pleural thickening or pleural effusion. MEDIASTINUM: The heart and great vessels demonstrate no acute abnormality. There is no mediastinal or hilar lymph adenopathy is visualized on this noncontrast exam. AXILLAE: Within normal limits. No lymphadenopathy. MUSCULOSKELETAL: Within normal limits for patient age. MISCELLANEOUS: The visualized upper abdominal organs demonstrate no acute abnormality. CONCLUSION: Severe left lower lobe and mild right lower lobe airspace consolidation. This could be consistent wit h an infectious process/pneumonia given the clinical history provided. Alternatively, pulmonary hemor rhage or other inflammatory conditions could have a similar appearance. Consider followup to confirm resolution. Phil Cisse MD on September 11, 2016 at 14:01 Board Certified Radiologist. This report was verified electronically.
[2016-09-11] MEDS ORDERED: ACETAMINOPHEN/HYDROcodone 325 MG/5 MG TAB PO PRN (14:15)
[2016-09-11] MEDS: CIPROFLOXACIN 400 MG PREMIX 200 ML IV SCH ×2 (14:32→23:00)
[2016-09-11] MEDS: ACETAMINOPHEN/HYDROcodone 325 MG/5 MG TAB PO PRN ×2 (14:33→18:33)
[2016-09-11 16:18] VITALS: BP 125/74; PULSE 81; RESP 18; TEMP 97.8; O2SAT 95
[2016-09-11 20:59] VITALS: BP 120/82; PULSE 80; RESP 18; TEMP 96.3; O2SAT 95
[2016-09-12 00:10] VITALS: BP 104/73; PULSE 94; RESP 19; TEMP 96; O2SAT 93
[2016-09-12] MEDS: ACETAMINOPHEN/HYDROcodone 325 MG/5 MG TAB PO PRN (00:58)
[2016-09-12] MEDS: VANCOMYCIN INJ 1,000 MG in SODIUM CHLOR 0.9% 250 ML INJ 250 ML IV SCH (02:00)
[2016-09-12] MEDS ORDERED: PHARMACY ORDERED LAB XX ONE (09:45)
[2016-09-12] MEDS ORDERED: ADDE30TA PO (18:44)
[2016-09-12] MEDS ORDERED: XANA1TAB2 PO (18:44)
[2016-09-13] MEDS ORDERED: LEVA750T PO (07:41)
== END 2016-09-12 02:00 | disposition left against medical advice (07) | DRG 917 ==
LOC: NEPE 02:25 → EDBD 03:37 → NEDA 03:37 → N03B 05:33 → N05A 09-08 20:38
PROVIDERS: ADMIT Hospitalist; ATTEND Hospitalist
PROC: 5A1955Z Respiratory Ventilation, Greater than 96 Consecutive Hours (ICD-10-PCS; principal; 2016-09-07)
PROC: 0BH17EZ Insertion of Endotracheal Airway into Trachea, Via Natural or Artificial Opening (ICD-10-PCS; 2016-09-07)
DX: T65.894A Toxic effect of other specified substances, undetermined, initial encounter (principal); J96.01 Acute respiratory failure with hypoxia; G92 Toxic encephalopathy; J96.02 Acute respiratory failure with hypercapnia; N17.9 Acute kidney failure, unspecified; T42.4X4A Poisoning by benzodiazepines, undetermined, initial encounter; E87.2 Acidosis; F19.94 Other psychoactive substance use, unspecified with psychoactive substance-induced mood disorder; F14.10 Cocaine abuse, uncomplicated; F41.9 Anxiety disorder, unspecified; R00.0 Tachycardia, unspecified; Y92.002 Bathroom of unspecified non-institutional (private) residence as the place of occurrence of the external cause
CPT/HCPCS: 31500; 36600; 51702; 70450; 71010; 71250; 80048; 80053; 80307; 80320; 80329; 81001; 82010; 82550; 82805; 82948; 83605; 83690; 83735; 84484; 85007; 85027; 87040; 87086; 87449; 87535; 87641; 93005; 94002; 94640; 94664; 96365; 96375; G0480; J0692; J0696; J0744; J1644; J2250; J2310; J2543; J3370; J7030; J7050; J7120

== ENCOUNTER 2016-09-12 18:22 | Inpatient (IN) | payer SELFPAY ==
[~2016-09-12] VITALS: Ht 190.5 cm; Wt 75.2 kg
[~2016-09-12 18:22] MED LIST: ALPR.5 PO
[2016-09-12 18:25] VITALS: BP 138/106; PULSE 123; RESP 18; TEMP 98.8; O2SAT 96
[2016-09-12] MEDS ORDERED: ADDE30TA PO (18:44)
[2016-09-12] MEDS ORDERED: XANA1TAB2 PO (18:44)
[2016-09-12] MEDS ORDERED: AZITHROMYCIN INJ 500 MG in SODIUM CHLOR 0.9% 250 ML INJ 250 ML IV STA (18:52)
[2016-09-12] MEDS ORDERED: PIPERACIL-TAZO 4.5 GM PREMIX 100 ML IV STA (18:52)
[2016-09-12] MEDS ORDERED: SODIUM CHLOR 0.9% 1000 ML INJ 1,000 ML IV ONE (19:00)
--- NOTE | 2016-09-12 19:01 | PD ---
HPI Chief Complaint: Cold / Flu Symptoms Time Seen by Provider: 18:36 Travel History International Travel<30 days: No Contact w/Intl Traveler<30days: No Traveled to known affect area: No History of Present Illness HPI This 30-year-old male presents for treatment of pneumonia. He was admitted to [facility] on the of this month after an overdose. He was intubated and in the intensive care unit. He was extubated and sent to the floor. On the he had a chest x-ray which showed pneumonia. His x-ray on the day of admission did not show pneumonia. He had a CT scan on the which showed that he had bilateral pneumonia. He signed out of [place] early this morning because he was not happy with the care. He presents now for treatment. He says he been having fever. He's been coughing up large amounts of phlegm area he does smoke cigarettes. He had overdosed on Xanax and cocaine. He says he does not do IV drugs. PFSH Past Medical History Hx Anticoagulant Therapy: No Arthritis: Yes (knees) Anxiety: Yes Depression: Yes Cardiovascular Problems: No Cerebrovascular Accident: No Gastrointestinal Disorders: Yes GERD: Yes Genitourinary: Yes (? PROSTATE CANCER, DIFFICULTY WITH URINATION) Hiatal Hernia: No Kidney Stones: No Neurologic: Yes Reproductive: No Respiratory: No Migraines: Yes Renal Failure: No Seizures: No Ulcer: Yes (REQUIRED BLOOD TRANSFUSION AT ONE TIME) Tetanus Vaccination: Unknown Influenza Vaccination: No Past Surgical History Abdominal Surgery: Yes (STOMACH ULCERS) Cardiac Surgery: No Ear Surgery: No Endocrine Surgery: No Eye Surgery: No Genitourinary Surgery: Yes Gynecologic Surgery: No Oral Surgery: No Thoracic Surgery: No Other Surgery: Yes Social History Alcohol Use: No Tobacco Use: Yes (0.5 PPD) Substance Use: Yes Allergies-Medications (Allergen,Severity, Reaction): Coded Allergies: Morphine (Verified Allergy, Unknown, 09/07/16) *MDRO Multi-Drug Resistant Organism (Verified Adverse Reaction, Unknown, ) MRSA PCR Screen POSITIVE - 09/07/2016 Reported Meds & Prescriptions Reported Meds & Active Scripts Active Reported Adderall (Amphetamine-Dextroamphetamine) 30 Mg Tab 60 Mg PO DAILY Avoid late evening doses. Space doses at least 4 to 6 hours if more than once/day dosing. Xanax (Alprazolam) 1 Mg Tab 1 Mg PO Q8H PRN Review of Systems General / Constitutional: Positive: Fever Eyes: No: Diploplia, Blurred Vision HENT: No: Headaches Cardiovascular: Positive: Chest Pain or Discomfort, Palpitations Respiratory: Positive: Cough, Shortness of Breath Gastrointestinal: No: Nausea, Vomiting Genitourinary: No: Urgency, Frequency Musculoskeletal: No: Myalgias Skin: No Rash Neurologic: No: Weakness, Dizziness Hematologic/Lymphatic: No: Easy Bruising Physical Exam Narrative GENERAL: Well-developed male SKIN: Warm and dry. HEAD: Atraumatic. Normocephalic. EYES: Pupils equal and round. No scleral icterus. No injection or drainage. ENT: No nasal bleeding or discharge. Mucous membranes pink and moist. NECK: Trachea midline. No JVD. CARDIOVASCULAR: Regular rate and rhythm. No murmur appreciated. Diminished breath sounds at the left base RESPIRATORY: No accessory muscle use. Clear to auscultation. Breath sounds equal bilaterally. GASTROINTESTINAL: Abdomen soft, non-tender, nondistended. Hepatic and splenic margins not palpable. MUSCULOSKELETAL: No obvious deformities. No clubbing. No cyanosis. No edema. NEUROLOGICAL: Awake and alert. No obvious cranial nerve deficits. Motor grossly within normal limits. Normal speech. PSYCHIATRIC: Appropriate mood and affect; insight and judgment limited. Data Data Last Documented VS Vital Signs Date Time Temp Pulse Resp B/P Pulse Ox O2 Delivery O2 Flow Rate FiO2 09/12/16 20:22 102 18 126/77 96 Room Air 09/12/16 18:25 98.8 Orders Complete Blood Count With Diff (09/12/16 18:52) Comprehensive Metabolic Panel (09/12/16 18:52) Lactic Acid Sepsis Protocol (09/12/16 18:52) Urinalysis - C+S If Indicated (09/12/16 18:52) Influenzae A/B Antigen (09/12/16 18:52) Blood Culture (09/12/16 18:52) Chest, Single Ap (09/12/16 18:52) Blood Glucose (09/12/16 18:52) Ecg Monitoring (09/12/16 18:52) Iv Access Insert/Monitor (09/12/16 18:52) Oximetry (09/12/16 18:52) Oxygen Administration (09/12/16 18:52) Piperacil-Tazo 4.5 Gm Premix (Zosyn 4.5 (09/12/16 18:52) Azithromycin Inj (Zithromax Inj) (09/12/16 18:52) Sodium Chlor 0.9% 1000 Ml Inj (Ns 1000 M (09/12/16 19:00) Ketorolac Inj (Toradol Inj) (09/12/16 20:30) Drug Screen, Random Urine (09/12/16 20:18) Labs Laboratory Tests Test 09/12/16 19:35 White Blood Count 6.7 TH/MM3 Red Blood Count 4.43 MIL/MM3 Hemoglobin 13.7 GM/DL Hematocrit 40.5 % Mean Corpuscular Volume 91.4 FL Mean Corpuscular Hemoglobin 31.0 PG Mean Corpuscular Hemoglobin 33.9 % Concent Red Cell Distribution Width 12.0 % Platelet Count 259 TH/MM3 Mean Platelet Volume 7.1 FL Neutrophils (%) (Auto) 73.1 % Lymphocytes (%) (Auto) 14.3 % Monocytes (%) (Auto) 8.5 % Eosinophils (%) (Auto) 3.8 % Basophils (%) (Auto) 0.3 % Neutrophils # (Auto) 4.8 TH/MM3 Lymphocytes # (Auto) 1.0 TH/MM3 Monocytes # (Auto) 0.6 TH/MM3 Eosinophils # (Auto) 0.3 TH/MM3 Basophils # (Auto) 0.0 TH/MM3 CBC Comment DIFF FINAL Differential Comment Sodium Level 141 MEQ/L Potassium Level 3.6 MEQ/L Chloride Level 103 MEQ/L Carbon Dioxide Level 32.3 MEQ/L Anion Gap 6 MEQ/L Blood Urea Nitrogen 12 MG/DL Creatinine 1.00 MG/DL Estimat Glomerular Filtration 89 ML/MIN Rate Random Glucose 83 MG/DL Lactic Acid Level 1.3 mmol/L Calcium Level 9.1 MG/DL Total Bilirubin 0.4 MG/DL Aspartate Amino Transf 24 U/L (AST/SGOT) Alanine Aminotransferase 26 U/L (ALT/SGPT) Alkaline Phosphatase 56 U/L Total Protein 7.4 GM/DL Albumin 3.1 GM/DL MDM Medical Decision Making Medical Screen Exam Complete: Yes Emergency Medical Condition: Yes Medical Record Reviewed: Yes Differential Diagnosis Differential includes pneumonia Narrative Course Patient had pneumonia documented on x-ray and CT scan last couple of days [place]. This is a pneumonia which apparently developed after he was intubated on the . Diagnosis Primary Impression: Pneumonia Admitting Information Admitting Physician Requests: Admit Kenan Sullivan MD Sep 12, 2016 19:00
[2016-09-12 19:14] VITALS: BP 149/94; PULSE 106; PULSE 120; RESP 18; O2SAT 95
--- NOTE | 2016-09-12 19:36 | RADHPO ---
EXAM DATE/TIME: 09/12/2016 19:23 [place] COMPARISON: CT THORAX W/O CONTRAST, September 11, 2016, 11:21. CHEST SINGLE AP, September 10, 2016, 17:49. INDICATIONS : Cough MEDICAL HISTORY : SURGICAL HISTORY : None. ENCOUNTER: Initial ACUITY: 3 days PAIN SCORE: Non-responsive. LOCATION: Bilateral chest FINDINGS: There is persistent left lower lobe consolidation. The right lung appears fairly clear on this chest x-ray. No effusion is seen. The heart size is normal. CONCLUSION: Left lower lobe consolidation. Phil Cyr MD on September 12, 2016 at 19:34 Board Certified Radiologist. This report was verified electronically.
[2016-09-12 20:04] LABS: AUTOMATED NEUTROPHIL # 4.8 TH/MM3 (1.8-7.7); BASOPHIL % 0.3 % (0.0-2.0); CHLORIDE 103 MEQ/L (98-107); EOSINOPHIL # 0.3 TH/MM3 (0-0.4); EOSINOPHIL % 3.8 % (0.0-4.0); HEMATOCRIT 40.5 % (39.0-51.0); HEMO FLAGS DIFF FINAL; LYMPH % 14.3 % (9.0-44.0); MEAN CELL VOLUME 91.4 FL (80.0-100.0); MEAN CORPUSCULAR HGB CONC 33.9 % (32.0-36.0); MONO % 8.5 % (0.0-8.0); NEUT % 73.1 % (16.0-70.0); PLATELET COUNT 259 TH/MM3 (150-450); POTASSIUM 3.6 MEQ/L (3.5-5.1); RED BLOOD COUNT 4.43 MIL/MM3 (4.50-5.90); SODIUM (NA) 141 MEQ/L (136-145); WHITE BLOOD COUNT 6.7 TH/MM3 (4.0-11.0)
[2016-09-12 20:08] LABS: ANION GAP 6 MEQ/L (5-15); BICARBONATE 32.3 MEQ/L (21.0-32.0); BLOOD UREA NITROGEN 12 MG/DL (7-18)
[2016-09-12 20:11] LABS: ALT (GPT) 26 U/L (12-78); AST (GOT) 24 U/L (15-37); GLOMERULAR FILTRATION RATE 89 ML/MIN (>89)
[2016-09-12 20:13] LABS: ALKALINE PHOSPHATASE 56 U/L (45-117); TOTAL BILIRUBIN ADULT 0.4 MG/DL (0.2-1.0)
[2016-09-12 20:18] LABS: BLOOD, URINE NEG (NEG); GLUCOSE,URINE NEG (NEG); KETONE, URINE NEG (NEG); NITRITE,URINE NEG (NEG); PH, URINE 6.5 (5.0-8.5)
[2016-09-12 20:22] VITALS: BP 126/77; PULSE 102; RESP 18; O2SAT 96
[2016-09-12] MEDS: SODIUM CHLOR 0.9% 1000 ML INJ 1,000 ML IV SCH (20:24)
[2016-09-12] MEDS ORDERED: SODIUM CHLORIDE 0.9% FLUSH 5 ML FLUSH FLUSH PRN (20:30)
[2016-09-12] MEDS ORDERED: Vancomycin Consult Pharmacy 1 EA OTHER SCH (20:30)
[2016-09-12] MEDS ORDERED: LORazepam 2 MG/ML VIAL IV PUSH PRN (20:30)
[2016-09-12] MEDS ORDERED: RESP: ALBUTEROL 2.5 MG/IPRATROPIUM 0.5 MG NEB (PRN) NEB (20:30)
[2016-09-12] MEDS ORDERED: ACETAMINOPHEN 325 MG TAB PO PRN (20:30)
[2016-09-12] MEDS ORDERED: NICOTINE 21 MG/24 HR PATCH TD SCH (20:30)
[2016-09-12] MEDS ORDERED: BISACODYL 10 MG SUPP PR PRN (20:30)
[2016-09-12] MEDS ORDERED: ONDANSETRON HCL 4 MG/2 ML VIAL IVP PRN (20:30)
[2016-09-12] MEDS ORDERED: KETOROLAC TROMETHAMINE 30 MG/ML (IVP) VIAL IV PUSH ONE (20:30)
[2016-09-12] MEDS ORDERED: SODIUM CHLORIDE 0.9% FLUSH 5 ML FLUSH FLUSH SCH (21:00)
[2016-09-12 21:09] LABS: METHOD OF COLLECTION CLEAN CATCH; URINE COLOR YELLOW (YELLW/STRAW)
[2016-09-12 21:10] LABS: MUCUS URINE OCC /lpf (OCC); SQUAMOUS EPITHELIAL CELL URINE 0-5 /hpf (0-5)
[2016-09-12 21:11] LABS: RBC, URINE 0-3 /hpf (0-3)
[2016-09-12 21:12] LABS: COMMENT (UR) CULT NOT INDICATED; CULTURE IF INDICATED CULT NOT INDICATED
[2016-09-12 21:18] VITALS: BP 148/98; PULSE 92; RESP 18; O2SAT 99
[2016-09-12 21:18] LABS: AMPHETAMINE, URINE POS (NEG); BARBITURATES, URINE NEG (NEG); COCAINE, URINE NEG (NEG)
[2016-09-12] MEDS ORDERED: PANTOPRAZOLE SODIUM 40 MG VIAL IV PUSH SCH (22:00)
[2016-09-12] MEDS: VANCOMYCIN 1,000 MG/NS 250 ML IV SCH ×2 (22:09)
[2016-09-12 22:33] VITALS: BP 149/87
[2016-09-12 23:15] VITALS: PULSE 88
[2016-09-13] VITALS: BP 155/106; PULSE 81; RESP 18; TEMP 97.7; O2SAT 100
[2016-09-13] MEDS: PIPERACIL-TAZO 4.5 GM PREMIX 100 ML IV SCH ×2 (01:30→06:21)
[2016-09-13 04:00] VITALS: BP 150/83; PULSE 94; RESP 18; TEMP 95.7; O2SAT 99
[2016-09-13] MEDS: VANCOMYCIN 1,000 MG/NS 250 ML IV SCH ×2 (05:40)
[2016-09-13] MEDS: SODIUM CHLOR 0.9% 1000 ML INJ 1,000 ML IV SCH (05:40)
[2016-09-13 06:57] LABS: AUTOMATED NEUTROPHIL # 3.4 TH/MM3 (1.8-7.7); BASOPHIL % 0.4 % (0.0-2.0); EOSINOPHIL # 0.4 TH/MM3 (0-0.4); HEMATOCRIT 39.3 % (39.0-51.0); HEMO FLAGS DIFF FINAL; LYMPH % 24.8 % (9.0-44.0); LYMPHOCYTE # 1.5 TH/MM3 (1.0-4.8); MEAN CELL VOLUME 91.3 FL (80.0-100.0); MEAN CORPUSCULAR HEMOGLOBIN 30.4 PG (27.0-34.0); MEAN CORPUSCULAR HGB CONC 33.3 % (32.0-36.0); MONO % 12.7 % (0.0-8.0); NEUT % 56.1 % (16.0-70.0); PLATELET COUNT 286 TH/MM3 (150-450); RED BLOOD COUNT 4.31 MIL/MM3 (4.50-5.90); RED CELL DISTRIBUTION WIDTH 11.7 % (11.6-17.2); WHITE BLOOD COUNT 6.1 TH/MM3 (4.0-11.0)
[2016-09-13 07:13] LABS: CHLORIDE 105 MEQ/L (98-107); POTASSIUM 3.6 MEQ/L (3.5-5.1); SODIUM (NA) 142 MEQ/L (136-145)
--- NOTE | 2016-09-13 07:24 | HHI.HP ---
[facility] Service [facility] Hospitalists Primary Care Physician No Primary Care Physician Admission Diagnosis PNEUMONIA Diagnoses: (1) Pneumonia Diagnosis: Principal Chief Complaint: Wanted to be treated in [place] Travel History International Travel<30 Days: No Contact w/Intl Traveler <30 Da: No Traveled to Known Affected Are: No History of Present Illness 30 year-old male who is recently admitted to [facility] for unresponsiveness, drug overdose. Patient was admitted under critical care service and was intubated for airway support. At that time patient was positive for benzodiazepines and cocaine. Patient does apply admit that he took 2 Xanax 1 mg tablets and decided to republican with his friends. He does not remember anything after taking those 2 Xanax tablets. Patient states that medical staff thought he overdosed because he is missing a lot of pills and his pill bottle. Patient openly admits that he did sell those. Patient was treated in [place] for drug overdose. He was successfully extubated. He was continued having pain in his chest a CT scan was done which did indicate a left lung pneumonia. Patient was undergoing treatment for that at that time. Patient states that he was not getting the treatment and care that he was hoping for at the other hospital so he signed out AGAINST MEDICAL ADVICE and came to [facility] because he felt that he get better service and care here. Patient was seen by emergency department physician. Patient had workup done which did not indicate any fever, hypoxia, leukocytosis, or any complication associated with the pneumonia. ER physician recommended patient be admitted the hospital for continued management and care. At the time evaluating the patient he indicated that he was hoping to come to [facility] and give prescribed antibiotics in the allowed to go home. I discussed with him, since he has an uncomplicated healthcare associated pneumonia we could treat with antibiotics and let him go home. Patient is in agreement with that plan. Review of Systems Constitutional: DENIES: Diaphoretic episodes, Fatigue, Fever, Weight gain, Weight loss, Chills, Dizziness, Change in appetite, Night Sweats Eyes: DENIES: Blurred vision, Diplopia, Eye inflammation, Eye pain, Vision loss , Double Vision Ears, nose, mouth, throat: DENIES: Vertigo, Nasal discharge, Throat pain, Ear Pain, Running Nose, Sinus Pain Respiratory: COMPLAINS OF: Cough, DENIES: Apneas, Snoring, Wheezing, Hemoptysis, Sputum production, Shortness of breath Cardiovascular: COMPLAINS OF: Chest pain, DENIES: Palpitations, Syncope, Dyspnea on Exertion, Lower Extremity Edema, Orthopnea Gastrointestinal: DENIES: Abdominal pain, Black stools, Bloody stools, Constipation, Diarrhea, Nausea, Vomiting, Difficulty Swallowing, Anorexia Neurologic: DENIES: Abnormal gait, Headache, Localized weakness, Paresthesias, Seizures, Speech Problems, Tremor, Poor Balance Psychiatric: DENIES: Anxiety, Confusion, Mood changes, Depression Past Family Social History Past Medical History History of gastric ulcers Anxiety/depression Past Surgical History EGD Reported Medications Reported Meds & Active Scripts Active Reported Adderall (Amphetamine-Dextroamphetamine) 30 Mg Tab 60 Mg PO DAILY Avoid late evening doses. Space doses at least 4 to 6 hours if more than once/day dosing. Xanax (Alprazolam) 1 Mg Tab 1 Mg PO Q8H PRN Allergies: Coded Allergies: Morphine (Verified Allergy, Unknown, 09/07/16) *MDRO Multi-Drug Resistant Organism (Verified Adverse Reaction, Unknown, ) MRSA PCR Screen POSITIVE - 09/07/2016 Family History Reviewed and unremarkable Social History Patient smokes one half to one pack a cigarettes a day since he was 14 years old. Denies any alcohol or illicit drugs, even though his drug screen was positive for cocaine Physical Exam Vital Signs Vital Signs Date Time Temp Pulse Resp B/P Pulse Ox O2 Delivery O2 Flow Rate FiO2 09/13/16 04:00 95.7 94 18 150/83 99 09/13/16 00:00 97.7 81 18 155/106 100 09/12/16 23:15 88 09/12/16 22:33 93 18 149/87 98 09/12/16 21:53 18 09/12/16 21:18 89 18 96 Room Air 09/12/16 21:18 92 18 148/98 99 Room Air 09/12/16 21:05 18 09/12/16 20:22 102 18 126/77 96 Room Air 09/12/16 19:14 96 Room Air 09/12/16 19:14 106 18 149/94 95 Room Air 09/12/16 19:14 18 95 Room Air 09/12/16 18:41 122 98 Room Air 09/12/16 18:25 98.8 123 18 138/106 96 Physical Exam GENERAL: Well-developed, well-nourished, in no acute distress. alert and orientated HEENT: Head is normocephalic without any lesions or masses noted. Facial features are symmetric. Eyes: Pupils equal round reactive to light. Extraocular muscles are intact. Conjunctivae were clear. Oropharyngeal: Pharynx without any erythema edema. Tongue is midline without deviation. Buccal mucosa is moist without any masses or lesions NECK: Supple without any masses. Trachea midline no deviation. No JVD, no bruits are appreciated CARDIAC: Regular rhythm, regular rate. S1/S2 are heard. No murmurs gallops or rubs. LUNGS: Clear to auscultation bilaterally. No wheeze, rhonchi or rales. No use of accessory muscles on inspiration or expiration. ABDOMEN: Soft, nontender. Nondistended. Bowel sounds heard in all 4 quadrants. No organomegaly or masses. Negative rebound, negative guarding EXTREMITIES: No edema, pulses are equal bilaterally. No cyanosis or clubbing NEUROLOGY: Mood and affect appear appropriate. Cranial nerves II through XII grossly intact. Muscle strength 5/5 in upper and lower extremities bilaterally. Deep tendon reflexes are 2+ in upper and lower extremities bilaterally. Laboratory Laboratory Tests Test 09/12/16 09/12/16 09/13/16 19:35 20:05 06:15 White Blood Count 6.7 6.1 Red Blood Count 4.43 4.31 Hemoglobin 13.7 13.1 Hematocrit 40.5 39.3 Mean Corpuscular Volume 91.4 91.3 Mean Corpuscular Hemoglobin 31.0 30.4 Mean Corpuscular Hemoglobin 33.9 33.3 Concent Red Cell Distribution Width 12.0 11.7 Platelet Count 259 286 Mean Platelet Volume 7.1 7.1 Neutrophils (%) (Auto) 73.1 56.1 Lymphocytes (%) (Auto) 14.3 24.8 Monocytes (%) (Auto) 8.5 12.7 Eosinophils (%) (Auto) 3.8 6.0 Basophils (%) (Auto) 0.3 0.4 Neutrophils # (Auto) 4.8 3.4 Lymphocytes # (Auto) 1.0 1.5 Monocytes # (Auto) 0.6 0.8 Eosinophils # (Auto) 0.3 0.4 Basophils # (Auto) 0.0 0.0 CBC Comment DIFF FINAL DIFF FINAL Differential Comment Sodium Level 141 Potassium Level 3.6 Chloride Level 103 Carbon Dioxide Level 32.3 Anion Gap 6 Blood Urea Nitrogen 12 Creatinine 1.00 Estimat Glomerular Filtration 89 Rate Random Glucose 83 Lactic Acid Level 1.3 Calcium Level 9.1 Total Bilirubin 0.4 Aspartate Amino Transf 24 (AST/SGOT) Alanine Aminotransferase 26 (ALT/SGPT) Alkaline Phosphatase 56 Total Protein 7.4 Albumin 3.1 Urine Collection Type CLEAN CATCH Urine Color YELLOW Urine Turbidity CLEAR Urine pH 6.5 Urine Specific [place] 1.012 Urine Protein NEG Urine Glucose (UA) NEG Urine Ketones NEG Urine Occult Blood NEG Urine Nitrite NEG Urine Bilirubin NEG Urine Leukocyte Esterase NEG Urine RBC 0-3 Urine Squamous Epithelial 0-5 Cells Urine Mucus OCC Microscopic Urinalysis Comment CULT NOT INDICATED Urine Opiates Screen NEG Urine Barbiturates Screen NEG Urine Amphetamines Screen POS Urine Benzodiazepines Screen POS Urine Cocaine Screen NEG Urine Cannabinoids Screen NEG Date/Time Procedure Status Source Growth 09/12/16 19:35 Influenza Types A,B Antigen (LANA) - Final Complete Nasal Aspirate NEGATIVE FOR FLU A AND B ANTIGEN.... 09/12/16 19:35 Aerobic Blood Culture Received Blood Peripheral Pending 09/12/16 19:35 Anaerobic Blood Culture Received Blood Peripheral Pending Result Diagram: 09/13/16 0615 09/12/16 1935 Imaging Last Impressions Chest X-Ray 09/12/16 1852 Signed Impressions: Service Date/Time: Monday, September 12, 2016 19:23 - CONCLUSION: Left lower lobe consolidation. Phil Cyr MD Assessment and Plan Assessment and Plan Left lung pneumonia, likely healthcare associated pneumonia from recent intubation Patient is afebrile, no hypoxia, no leukocytosis Patient started on vancomycin and Zosyn. Will discontinue that at this time Start Levaquin 750 mg by mouth daily Patient continue [id number] cough medicine upon discharge Drug overdose, recent admit Patient was evaluated by psychiatry who indicates the patient does not meet criteria for inpatient admission. Recommended outpatient evaluation and possible drug rehabilitation facility. Recommended following up with his outpatient psychiatrist for further management DVT prevention Sequential compression devices Written by Vincenzo De Leon PA-C, acting as scribe for Dr. Franks on 09/13/16 at Time. Discussed Condition With PATIENT LEFT AGAINST MEDICAL ADVICE BEFORE SEEN BY MYSELF DR. FRANKS. Physician Certification 2 Midnight Certification Type: Admission for Inpatient Services Order for Inpatient Services The services are ordered in accordance with Medicare regulations or non- Medicare payer requirements, as applicable. In the case of services not specified as inpatient-only, they are appropriately provided as inpatient services in accordance with the 2-midnight benchmark. Estimated LOS (days): 1 days is the estimated time the patient will need to remain in the hospital, assuming treatment plan goals are met and no additional complications. Post-Hospital Plan: Not yet determined Problem Qualifiers (1) Pneumonia: Vincenzo De Leon Sep 13, 2016 07:24 Airam Franks MD Sep 13, 2016 10:02 services in accordance with the 2-midnight benchmark. Estimated LOS (days): 1 days is the estimated time the patient will need to remain in the hospital, assuming treatment plan goals are met and no additional complications. Post-Hospital Plan: Not yet determined Problem Qualifiers (1) Pneumonia: Vincenzo De Leon Sep 13, 2016 07:24
[2016-09-13] MEDS ORDERED: LEVA750T PO (07:41)
[2016-09-13 07:42] LABS: ALKALINE PHOSPHATASE 53 U/L (45-117); ALT (GPT) 27 U/L (12-78); ANION GAP 6 MEQ/L (5-15); AST (GOT) 25 U/L (15-37); BICARBONATE 30.8 MEQ/L (21.0-32.0); BLOOD UREA NITROGEN 12 MG/DL (7-18); GLOMERULAR FILTRATION RATE 91 ML/MIN (>89); TOTAL BILIRUBIN ADULT 0.3 MG/DL (0.2-1.0)
--- NOTE | 2016-09-13 07:42 | HHI.DCPOC ---
Discharge Care Plan Diagnosis: (1) Pneumonia Goals to Promote Your Health * To prevent worsening of your condition and complications * To maintain your health at the optimal level Directions to Meet Your Goals Take your medications as prescribed Follow your dietary instruction Follow activity as directed Keep your appointments as scheduled Take your immunizations and boosters as scheduled If your symptoms worsen call your PCP, if no PCP go to Urgent Care Center or Emergency Room Smoking is Dangerous to Your Health. Avoid second hand smoke Call the 24-hour hour crisis hotline for domestic abuse at Vincenzo De Leon Sep 13, 2016 07:42
[2016-09-13] MEDS ORDERED: LORazepam 2 MG/ML VIAL IV PUSH PRN (08:00)
[2016-09-13] MEDS ORDERED: LEVOFLOXACIN 750 MG TAB PO SCH (09:00)
[2016-09-13] MEDS ORDERED: REMOVE OLD NICODERM (NICOTINE) PATCH TD SCH (09:00)
[2016-09-13] MEDS ORDERED: PHARMACY ORDERED LAB XX ONE (21:45)
== END 2016-09-13 09:52 | disposition left against medical advice (07) | DRG 195 ==
LOC: PHED 18:22 → PHEDA 20:28 → PH3B 22:26
PROVIDERS: ADMIT Family Medicine; ATTEND Family Medicine
DX: J18.9 Pneumonia, unspecified organism (principal); F41.8 Other specified anxiety disorders; F17.210 Nicotine dependence, cigarettes, uncomplicated; Z87.11 Personal history of peptic ulcer disease
CPT/HCPCS: 71010; 80053; 80307; 81001; 83605; 85025; 87040; 87804; 94664; 96365; 96375; C9113; J0456; J1885; J2060; J2543; J3370; J7030; J7050